=== PATIENT | female | born 1995 | race American Indian/Alaskan Native ===

== ENCOUNTER 2018-02-04 02:04 | Emergency (ER) | payer SELFPAY ==
[2018-02-04 04:28] LABS: Bilirubin,Urine NEG (Negative); Blood,Urine NEG (Negative); Color,Urine Yellow (Yellow); Mucus,Urine FEW /HPF; Protein,Urine <15 mg/dL mg/dL (Negative)
[2018-02-04 04:40] LABS: HCG Qualitative,Urine Negative (Negative)
--- NOTE | 2018-02-04 07:35 | Emergency Department Report ---
ED Female HPI - General Chief complaint: Urogenital-Female Stated complaint: ABDOMINAL/ URINATING PAIN Time Seen by Provider: 02/04/18 07:23 Source: patient Mode of arrival: Ambulatory Limitations: No Limitations - History of Present Illness Initial comments: 22-year-old female past medical history on control implant presents with complaint of dysuria and vaginal discharge for one week. Patient reports whitish brownish vaginal discharge. Denies fever chills nausea vomiting or any upper or lower abdominal pain. Primarily complaining of vaginal discharge. Triage note is incorrect. Patient is awake alert and oriented 3. Does endorse some dysuria as well. Denies increased urinary frequency. Denies hematuria. Denies any external rash. States she spots occasionally and that this is normal for her as she is currently on control. Denies any other complaints. Last known full menstrual period as per patient was 01/16/18. Symptoms have been ongoing for 1 week. MD Complaint: vaginal discharge Onset/Timin -: week(s) Severity: mild Quality: burning Worsens with: urination Are you Now?: No Last Menstrual Period: 01/16/18 EDC: 10/23/18 Associated Symptoms: vaginal discharge - Related Data Sexually active: Yes Previous Rx's Medication Instructions Recorded Last Taken Type predniSONE [Deltasone] 50 mg PO DAILY #5 tablet 09/17/17 Unknown Rx Nitrofurantoin Monohyd/M-Cryst 100 mg PO BID #10 capsule 02/04/18 Unknown Rx [Macrobid 100 mg Capsule] Phenazopyridine [Pyridium] 100 mg PO TID #6 tab 02/04/18 Unknown Rx Allergies Allergy/AdvReac Type Severity Reaction Status Date / Time No Known Allergies Allergy Unverified 09/16/17 20:23 ED Review of Systems ROS: Stated complaint: ABDOMINAL/ URINATING PAIN Other details as noted in HPI Constitutional: denies: chills, fever Eyes: denies: eye pain, eye discharge, vision change ENT: denies: ear pain, throat pain Respiratory: denies: cough, shortness of breath, wheezing Cardiovascular: denies: chest pain, palpitations Endocrine: no symptoms reported Gastrointestinal: denies: abdominal pain, nausea, diarrhea Genitourinary: dysuria, discharge. denies: urgency Musculoskeletal: denies: back pain, joint swelling, arthralgia Skin: denies: rash, lesions Neurological: denies: headache, weakness, paresthesias Psychiatric: denies: anxiety, depression Hematological/Lymphatic: denies: easy bleeding, easy bruising ED Past Medical Hx - Past Medical History Previous Medical History?: No - Surgical History Past Surgical History?: No - Social History Smoking Status: Never Smoker - Medications Home Medications: Home Medications Medication Instructions Recorded Confirmed Last Taken Type predniSONE [Deltasone] 50 mg PO DAILY #5 tablet 09/17/17 Unknown Rx Nitrofurantoin Monohyd/M-Cryst 100 mg PO BID #10 capsule 02/04/18 Unknown Rx [Macrobid 100 mg Capsule] Phenazopyridine [Pyridium] 100 mg PO TID #6 tab 02/04/18 Unknown Rx ED Physical Exam - General Limitations: No Limitations General appearance: alert, in no apparent distress - Head Head exam: Present: atraumatic, normocephalic - Eye Eye exam: Present: normal appearance, PERRL, EOMI - ENT ENT exam: Present: mucous membranes moist - Neck Neck exam: Present: normal inspection - Respiratory Respiratory exam: Present: normal lung sounds bilaterally. Absent: respiratory distress - Cardiovascular Cardiovascular Exam: Present: regular rate, normal rhythm. Absent: systolic murmur, diastolic murmur, rubs, gallop - GI/Abdominal GI/Abdominal exam: Present: soft, normal bowel sounds - External exam: Present: normal external exam Speculum exam: Present: vaginal discharge (slightly white yellowish vaginal discharge) Bi-manual exam: Present: normal bi-manual exam - Extremities Exam Extremities exam: Present: normal inspection - Back Exam Back exam: Present: normal inspection - Neurological Exam Neurological exam: Present: alert, oriented X3, CN II-XII intact, normal gait - Psychiatric Psychiatric exam: Present: normal affect, normal mood - Skin Skin exam: Present: warm, dry, intact, normal color. Absent: rash ED Course Vital Signs 02/04/18 02/04/18 02:16 02:45 Temperature 99.2 F 99.2 F Pulse Rate 92 H 73 Respiratory 18 Rate Blood Pressure 131/65 131/65 O2 Sat by Pulse 98 98 Oximetry ED Medical Decision Making - Medical Decision Making A/P: cervicitis vs possible uti, vaginal discharge 1-patient empirically treated with azithromycin and ceftriaxone for possible cervicitis 2-GC cultures sent, urine cultures 3-patient given follow-up with primary care/[facility] 4- wet prep is unremarkable. As patient does endorse dysuria will treat her empirically with Macrobid Critical care attestation.: If time is entered above; I have spent that time in minutes in the direct care of this critically ill patient, excluding procedure time. ED Disposition Clinical Impression: Vaginal discharge, Dysuria Disposition: TO HOME OR SELFCARE Is pt being admited?: No Does the pt Need Aspirin: No Condition: Stable Instructions: Dysuria (ED), Cervicitis (ED) Prescriptions: Nitrofurantoin Monohyd/M-Cryst [Macrobid 100 mg Capsule] 100 mg PO BID #10 capsule Phenazopyridine [Pyridium] 100 mg PO TID #6 tab Referrals: NEVA FAJARDO MD [Primary Care Provider] - 3-5 Days [facility] [Provider Group] - 3-5 Days [facility] [Outside] - 3-5 Days Forms: Work/School Release Form(ED) Time of Disposition: 08:15
[2018-02-04] MEDS ORDERED: ZITHROMAX PO ONE (07:50)
[2018-02-04] MEDS ORDERED: XYLOCAINE 1% MPF 5 mL INFILTRATI ONE (07:50)
[2018-02-04] MEDS ORDERED: ROCEPHIN IM ONE (07:50)
[2018-02-04 08:26] VITALS: BP 132/76
== END 2018-02-04 08:28 | disposition home or self-care (01) ==
LOC: ED 02:04
DX: N89.8 Other specified noninflammatory disorders of vagina (principal); R30.0 Dysuria
CPT/HCPCS: 81001; 81025; 87086; 87210; 87591; 96372; 99284; J0696; 99283

== ENCOUNTER 2018-07-28 16:37 | Emergency (ER) | payer OTHER ==
--- NOTE | 2018-07-28 18:14 | Emergency Department Report ---
ED Female HPI - General Chief complaint: Vaginal Bleeding Stated complaint: VAGINAL BLEEDING/FOOT INJURY Time Seen by Provider: 07/28/18 18:13 Source: patient Mode of arrival: Ambulatory Limitations: No Limitations - History of Present Illness Initial comments: This is a 23-year-old female nontoxic, well nourished in appearance, no acute signs of distress presents to the ED with c/o of intermittent vaginal bleeding 2 months. Patient stated that her last menstrual cycle was on July 12 and return July 19. Patient states she had IUD placed 2 years ago. Patient denies follow up with a [facility]. Patient denies any abdominal pain, pelvic pain, urinary symptoms, or vaginal discharge. Patient denies any back pain, fever, chills, nausea, vomiting, chest pain, short of breath, headache, stiff neck, numbness or tingling or dizziness. Patient denies any drug allergies or significant past medical history. MD Complaint: vaginal bleeding -: month(s) (2) Severity scale (0 -10): 0 Consistency: intermittent Improves with: none Worsens with: none Are you Now?: No Associated Symptoms: vaginal discharge. denies: vaginal bleeding, abdominal pain, nausea/vomiting, fever/chills, headaches, loss of appetite, dysuria, hematuria, rash, seizure, shortness of breath, syncope, weakness - Related Data Previous Rx's Medication Instructions Recorded Last Taken Type predniSONE [Deltasone] 50 mg PO DAILY #5 tablet 09/17/17 Unknown Rx Nitrofurantoin Monohyd/M-Cryst 100 mg PO BID #10 capsule 02/04/18 Unknown Rx [Macrobid 100 mg Capsule] Phenazopyridine [Pyridium] 100 mg PO TID #6 tab 02/04/18 Unknown Rx Sulfamethoxazole/Trimethoprim 1 each PO BID #14 tablet 07/28/18 Unknown Rx [Bactrim DS TAB] Allergies Allergy/AdvReac Type Severity Reaction Status Date / Time No Known Allergies Allergy Unverified 09/16/17 20:23 ED Review of Systems ROS: Stated complaint: VAGINAL BLEEDING/FOOT INJURY Other details as noted in HPI Constitutional: denies: chills, fever Eyes: denies: eye pain, eye discharge, vision change ENT: denies: ear pain, throat pain Respiratory: denies: cough, shortness of breath, wheezing Cardiovascular: denies: chest pain, palpitations Endocrine: no symptoms reported Gastrointestinal: denies: abdominal pain, nausea, diarrhea Genitourinary: abnormal menses. denies: urgency, dysuria, discharge Musculoskeletal: denies: back pain, joint swelling, arthralgia Skin: denies: rash, lesions Neurological: denies: headache, weakness, paresthesias Psychiatric: denies: anxiety, depression Hematological/Lymphatic: denies: easy bleeding, easy bruising ED Past Medical Hx - Social History Smoking Status: Never Smoker - Medications Home Medications: Home Medications Medication Instructions Recorded Confirmed Last Taken Type predniSONE [Deltasone] 50 mg PO DAILY #5 tablet 09/17/17 Unknown Rx Nitrofurantoin Monohyd/M-Cryst 100 mg PO BID #10 capsule 02/04/18 Unknown Rx [Macrobid 100 mg Capsule] Phenazopyridine [Pyridium] 100 mg PO TID #6 tab 02/04/18 Unknown Rx Sulfamethoxazole/Trimethoprim 1 each PO BID #14 tablet 07/28/18 Unknown Rx [Bactrim DS TAB] ED Physical Exam - General Limitations: No Limitations General appearance: alert, in no apparent distress - Head Head exam: Present: atraumatic, normocephalic - Eye Eye exam: Present: normal appearance Pupils: Present: normal accommodation - ENT ENT exam: Present: normal exam, mucous membranes moist - Neck Neck exam: Present: normal inspection, full ROM. Absent: tenderness, meningismus, lymphadenopathy - Respiratory Respiratory exam: Present: normal lung sounds bilaterally. Absent: respiratory distress, wheezes, rales, rhonchi, stridor, chest wall tenderness, accessory muscle use, decreased breath sounds, prolonged expiratory - Cardiovascular Cardiovascular Exam: Present: regular rate, normal rhythm, normal heart sounds. Absent: irregular rhythm, systolic murmur, diastolic murmur, rubs, gallop - GI/Abdominal GI/Abdominal exam: Present: soft, normal bowel sounds. Absent: distended, tenderness, guarding, rebound, rigid, diminished bowel sounds - Extremities Exam Extremities exam: Present: normal inspection, full ROM, normal capillary refill - Back Exam Back exam: Present: normal inspection, full ROM. Absent: paraspinal tenderness , vertebral tenderness - Neurological Exam Neurological exam: Present: alert, oriented X3, normal gait - Psychiatric Psychiatric exam: Present: normal affect, normal mood - Skin Skin exam: Present: warm, dry, intact, normal color. Absent: rash ED Course Vital Signs 07/28/18 16:52 Temperature 99.1 F Pulse Rate 103 H Respiratory 16 Rate Blood Pressure 143/74 O2 Sat by Pulse 99 Oximetry - Reevaluation(s) Reevaluation #1: 07/28/18 21:00 Patient is speaking in full sentences with no signs of distress noted. ED Medical Decision Making - Lab Data Result diagrams: 07/28/18 18:17 07/28/18 18:17 - Medical Decision Making This is a 23-year-old female that presents with abnormal menstrual cycle and UTI. Patient is stable was examined by me. On examination there is no abdominal tenderness or pelvic tenderness. Labs unremarkable. Patient does have a elevated WBCs with urine so will treat patient with Bactrim at discharge. Ultrasound of pelvic/transvaginal within normal limits. Dictated by radiologist. Patient was referred to Follow-up with a primary care/[facility] doctor in 3-5 days or if symptoms worsen and continue return to emergency room as soon as possible. At time of discharge, the patient does not seem toxic or ill in appearance. No acute signs of distress noted. Patient agrees to discharge treatment plan of care. No further questions noted by the patient. Critical care attestation.: If time is entered above; I have spent that time in minutes in the direct care of this critically ill patient, excluding procedure time. ED Disposition Clinical Impression: Abnormal menstrual cycle UTI (urinary tract infection) Qualifiers: Urinary tract infection type: site unspecified Hematuria presence: without hematuria Qualified Code(s): N39.0 - Urinary tract infection, site not specified Disposition: DC- TO HOME OR SELFCARE Is pt being admited?: No Does the pt Need Aspirin: No Condition: Stable Instructions: Urinary Tract Infection in Women (ED) Additional Instructions: Follow-up with a primary care/[facility] doctor in 3-5 days or if symptoms worsen and continue return to emergency room as soon as possible. Prescriptions: Sulfamethoxazole/Trimethoprim [Bactrim DS TAB] 1 each PO BID #14 tablet Referrals: PRIMARY MD LISETH [Primary Care Provider] - 3-5 Days NAIN LUX MD [Staff Physician] - 3-5 Days JUWAN KING MD [Staff Physician] - 3-5 Days [facility] [Provider Group] - 3-5 Days Forms: Work/School Release Form(ED)
[2018-07-28 18:30] LABS: Basophils % (Auto) 0.4 % (0.0-1.8); Eosinophils # (Auto) 0.3 K/mm3 (0.0-0.4); Eosinophils % (Auto) 3.3 % (0.0-4.3); Hematocrit 42.9 % (30.3-42.9); Hemoglobin 13.7 gm/dl (10.1-14.3); Lymphocytes # (Auto) 3.4 K/mm3 (1.2-5.4); Lymphocytes % (Auto) 35.4 % (13.4-35.0); Mean Corpuscular HGB Conc 32 % (30-34); Mean Corpuscular Volume 76 fl (79-97); Monocytes # (Auto) 0.8 K/mm3 (0.0-0.8); Monocytes % (Auto) 8.7 % (0.0-7.3); Platelet Count 405 K/mm3 (140-440); Red Blood Count 5.62 M/mm3 (3.65-5.03); Red Cell Distribution Width 16.9 % (13.2-15.2)
[2018-07-28 18:35] LABS: Mean Corpuscular Hemoglobin 24 pg (28-32)
[2018-07-28 18:47] LABS: BUN/Creatinine Ratio 14; Blood Urea Nitrogen 11 mg/dL (7-17); Calcium 9.4 mg/dL (8.4-10.2); Hemolysis Index 47
[2018-07-28 19:18] LABS: Bacteria,Urine 1+ /HPF (Negative); Bilirubin,Urine NEG (Negative); Blood,Urine LG (Negative); Color,Urine Yellow (Yellow); Mucus,Urine FEW /HPF; Urobilinogen,Urine < 2.0 mg/dL (<2.0)
[2018-07-28 19:19] LABS: RBC,Urine > 182.0 /HPF (0.0-6.0)
--- NOTE | 2018-07-28 20:17 | Ultrasound Report ---
FINAL REPORT EXAM: US TRANSVAGINAL HISTORY: vaginal bleeding COMPARISON: None available. TECHNIQUE: Several real-time grayscale and color Doppler images were obtained. Transabdominal and transvaginal exam. FINDINGS: Uterus measures 6.0 x 3.5 x 4.3 centimeters. Endometrial stripe measures 5 millimeters. Right ovary measures 2.4 x 1.7 x 1.7 centimeters. The left ovary measures 2.4 x 2.4 x 2.2 centimeters. There is vascular flow to the bilateral ovaries. Small follicles are present. No discrete uterine lesions. No adnexal masses. No free fluid. IMPRESSION: No discrete uterine lesions or adnexal masses. Gross normal physiologic changes of the ovaries.
--- NOTE | 2018-07-28 20:17 | Ultrasound Report ---
FINAL REPORT EXAM: US PELVIC COMPLETE HISTORY: vaginal bleeding COMPARISON: None available. TECHNIQUE: Several real-time grayscale and color Doppler images were obtained. Transabdominal and transvaginal exam. FINDINGS: Uterus measures 6.0 x 3.5 x 4.3 centimeters. Endometrial stripe measures 5 millimeters. Right ovary measures 2.4 x 1.7 x 1.7 centimeters. The left ovary measures 2.4 x 2.4 x 2.2 centimeters. There is vascular flow to the bilateral ovaries. Small follicles are present. No discrete uterine lesions. No adnexal masses. No free fluid. IMPRESSION: No discrete uterine lesions or adnexal masses. Gross normal physiologic changes of the ovaries.
[2018-07-28 21:55] VITALS: BP 139/72
== END 2018-07-28 21:56 | disposition home or self-care (01) ==
LOC: ED 16:37
DX: N92.6 Irregular menstruation, unspecified (principal); N39.0 Urinary tract infection, site not specified
CPT/HCPCS: 36415; 76830; 76856; 80048; 81001; 84702; 85025